=== PATIENT | female | born 2000 | race African-American/Black ===

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

== ENCOUNTER 2021-04-10 22:06 | Emergency (ER) | payer OTHER | END 2021-04-10 23:11 | disposition left against medical advice (07) | LOC: ERS 22:06 | DX: Z53.21 Procedure and treatment not carried out due to patient leaving prior to being seen by health care provider (principal) ==

== ENCOUNTER 2021-05-03 16:15 | Emergency (ER) | payer OTHER ==
[2021-05-03] MEDS ORDERED: HYDROcodone/Acetaminophen 5/325 mg Tablet ONE (16:50)
== END 2021-05-03 19:10 | disposition home or self-care (01) ==
LOC: ERS 16:15
DX: M25.561 Pain in right knee (principal)

== ENCOUNTER 2021-07-08 21:56 | Emergency (ER) | payer OTHER ==
[2021-07-08] MEDS ORDERED: Pantoprazole 40 MG VIAL ONE (23:00)
[2021-07-08] MEDS ORDERED: Ondansetron PF 4 MG/2 ML Vial ONE (23:00)
[2021-07-08 23:31] LABS: #Eosinphils 0.1 thou/uL (0.0-0.7); #Lymphocytes 2.1 thou/uL (1.20-3.40); #Monocytes 0.4 thou/uL (0.11-0.59); #Neutrophils 2.7 thou/uL (1.40-6.50); %Basophils 0.7 % (0.0-1.0); %Eosinophils 2.6 % (0.0-10.0); %Lymphocytes 38.8 % (28.0-48.0); %Monocytes 7.6 % (0.0-4.0); %Neutrophils 50.3 % (31.0-61.0); Hemoglobin 12.2 g/dL (12.0-16.0); Mean Corpuscular HGB CONC 34.2 g/dL (32.0-36.0); Mean Corpuscular Hemoglobin 28.7 pg (25.0-35.0); Mean Platelet Volume 11.8 fL (7.4-10.4); Platelet Count 116 thou/uL (130-400); RBC Distribution Width 12.7 % (11.5-14.5); Red Blood Cell (RBC) Count 4.24 mill/uL (4.00-5.20); White Blood Cell (WBC) Count 5.5 thou/uL (4.8-10.8)
[2021-07-08 23:44] LABS: ALT (SGPT) 12 U/L (8-55); AST (SGOT) 14 U/L (5-34); Albumin 4.1 g/dL (3.5-5.0); Alkaline Phosphatase 64 U/L (40-100); Anion Gap 12 mmol/L (10-20); BUN (Urea Nitrogen) 16 mg/dL (7.0-18.7); Bilirubin, Total 0.2 mg/dL (0.2-1.2); Calc. Creatinine Clearance 0 mL/min (70-130); Calcium 9.4 mg/dL (7.8-10.44); Carbon Dioxide 22 mmol/L (22-29); Chloride 108 mmol/L (98-107); Globulin 3.6 g/dL (2.4-3.5); Glucose 98 mg/dL (70-105); Lipase 34 U/L (8-78); Potassium 4.1 mmol/L (3.5-5.1); Protein, Total 7.7 g/dL (6.0-8.3); Sodium 138 mmol/L (136-145)
== END 2021-07-09 00:08 | disposition home or self-care (01) ==
LOC: ERS 21:56
DX: K92.0 Hematemesis (principal); J45.909 Unspecified asthma, uncomplicated
CPT/HCPCS: 36415; 80053; 83690; 85025; 96374; 96375; C9113; J2405

== ENCOUNTER 2021-07-10 19:59 | Emergency (ER) | payer OTHER ==
[2021-07-10 20:43] LABS: #Basophils 0.1 thou/uL (0.0-0.2); #Eosinphils 0.1 thou/uL (0.0-0.7); #Monocytes 0.3 thou/uL (0.11-0.59); #Neutrophils 2.3 thou/uL (1.40-6.50); %Basophils 1.5 % (0.0-1.0); %Neutrophils 47.5 % (31.0-61.0); Hemoglobin 12.8 g/dL (12.0-16.0); Mean Corpuscular HGB CONC 33.3 g/dL (32.0-36.0); Mean Corpuscular Hemoglobin 28.2 pg (25.0-35.0); Mean Corpuscular Volume 84.7 fL (78.0-98.0); Mean Platelet Volume 11.4 fL (7.4-10.4); Platelet Count 129 thou/uL (130-400); RBC Distribution Width 12.7 % (11.5-14.5); Red Blood Cell (RBC) Count 4.54 mill/uL (4.00-5.20); White Blood Cell (WBC) Count 4.7 thou/uL (4.8-10.8)
[2021-07-10 20:59] LABS: ALT (SGPT) 13 U/L (8-55); AST (SGOT) 14 U/L (5-34); Albumin 4.3 g/dL (3.5-5.0); Alkaline Phosphatase 65 U/L (40-100); Anion Gap 12 mmol/L (10-20); BUN (Urea Nitrogen) 16 mg/dL (7.0-18.7); Bilirubin, Total 0.2 mg/dL (0.2-1.2); Calc. Creatinine Clearance 0 mL/min (70-130); Calcium 9.5 mg/dL (7.8-10.44); Carbon Dioxide 20 mmol/L (22-29); Chloride 108 mmol/L (98-107); Globulin 4.1 g/dL (2.4-3.5); Glucose 87 mg/dL (70-105); Potassium 4.1 mmol/L (3.5-5.1); Protein, Total 8.4 g/dL (6.0-8.3); Sodium 136 mmol/L (136-145)
[2021-07-10 21:05] LABS: BHCG - Serum Negative (NEGATIVE); Pregs Control Background? CLEAR/WHITE (CLR/WHITE); Pregs Control Bar Appear? YES (CONTROL BAR)
[2021-07-10 21:58] LABS: Bilirubin Negative (Negative); Blood, Urine Negative (Negative); Clarity Clear (Clear); Glucose, Urine (Dipstick) Normal (Negative); Ketone, Urine Negative (Negative); Leukocyte Negative Leu/uL (Negative); Nitrite Negative (Negative); Protein, Urine (Dipstick) Negative (Neg-Trace); Specific Gravity, Urine 1.033 (1.002-1.036); pH, Urine 6.5 (5.0-9.0)
[2021-07-10] MEDS ORDERED: Ondansetron ODT 4 MG TAB ONE (22:01)
[2021-07-10] MEDS ORDERED: Lidocaine Viscous Sol 2% 15 ml UD Cup ONE (22:01)
[2021-07-10] MEDS ORDERED: Mag-Al 1200 mg/1200 mg/30 ML UDCUP ONE (22:01)
== END 2021-07-10 23:00 | disposition home or self-care (01) ==
LOC: ERS 19:59
DX: K92.0 Hematemesis (principal); R10.13 Epigastric pain
CPT/HCPCS: 36415; 80053; 81003; 83690; 84703; 85025; 99284; Q0162

== ENCOUNTER 2021-12-28 15:17 | Emergency (ER) | payer OTHER, SELFPAY ==
[2021-12-28] MEDS ORDERED: Dexamethasone 10 MG/ML VIAL ONE (15:58)
[2021-12-28] MEDS ORDERED: diphenhydrAMINE 50 MG/ML VIAL ONE (15:59)
== END 2021-12-28 17:16 | disposition home or self-care (01) ==
LOC: ERS 15:17
DX: T78.49XA Other allergy, initial encounter (principal); J45.909 Unspecified asthma, uncomplicated
CPT/HCPCS: 96372; 99284; J1100; J1200

== ENCOUNTER 2022-01-05 03:08 | Emergency (ER) | payer OTHER ==
[2022-01-05] MEDS ORDERED: Acetaminophen 500 MG TAB ONE (05:32)
== END 2022-01-05 06:00 | disposition home or self-care (01) ==
LOC: ERS 03:08
DX: S70.01XA Contusion of right hip, initial encounter (principal); V49.50XA Passenger injured in collision with unspecified motor vehicles in traffic accident, initial encounter; J45.909 Unspecified asthma, uncomplicated; F17.210 Nicotine dependence, cigarettes, uncomplicated; Z79.899 Other long term (current) drug therapy
CPT/HCPCS: 72170

== ENCOUNTER 2022-01-22 17:38 | Emergency (ER) | payer OTHER ==
[2022-01-22 18:30] LABS: #Eosinphils 0.1 thou/uL (0.0-0.7); #Lymphocytes 1.4 thou/uL (1.20-3.40); #Monocytes 0.4 thou/uL (0.11-0.59); #Neutrophils 2.2 thou/uL (1.40-6.50); %Basophils 0.6 % (0.0-1.0); %Eosinophils 2.8 % (0.0-10.0); %Lymphocytes 33.8 % (28.0-48.0); %Monocytes 9.9 % (0.0-4.0); %Neutrophils 52.9 % (31.0-61.0); Hemoglobin 11.5 g/dL (12.0-16.0); Mean Corpuscular HGB CONC 31.6 g/dL (32.0-36.0); Mean Corpuscular Hemoglobin 26.1 pg (25.0-35.0); Mean Corpuscular Volume 82.7 fL (78.0-98.0); Platelet Count 145 thou/uL (130-400); RBC Distribution Width 14.6 % (11.5-14.5); Red Blood Cell (RBC) Count 4.39 mill/uL (4.00-5.20); White Blood Cell (WBC) Count 4.1 thou/uL (4.8-10.8)
[2022-01-22 18:33] LABS: BHCG - Serum Negative (NEGATIVE); Pregs Control Background? CLEAR/WHITE (CLR/WHITE); Pregs Control Bar Appear? YES (CONTROL BAR)
[2022-01-22 18:46] LABS: Large Platelets SLIGHT; MDiff Complete? YES; Platelet Morphology Comment Appears Adequate; Polychromasia SLIGHT = 2-3 cells (100X) (0-2/hpf)
[2022-01-22 18:47] LABS: ALT (SGPT) 16 U/L (8-55); AST (SGOT) 12 U/L (5-34); Alkaline Phosphatase 77 U/L (40-100); Anion Gap 16 mmol/L (10-20); BUN (Urea Nitrogen) 12 mg/dL (7.0-18.7); Bilirubin, Total 0.3 mg/dL (0.2-1.2); Calc. Creatinine Clearance 0 mL/min (70-130); Calcium 8.9 mg/dL (7.8-10.44); Carbon Dioxide 19 mmol/L (22-29); Chloride 106 mmol/L (98-107); Estimated GFR 119; Globulin 3.7 g/dL (2.4-3.5); Glucose 111 mg/dL (70-105); Lipase 18 U/L (8-78); Potassium 3.5 mmol/L (3.5-5.1); Protein, Total 7.7 g/dL (6.0-8.3); Sodium 137 mmol/L (136-145)
[2022-01-22] MEDS ORDERED: Ondansetron ODT 4 MG TAB ONE (19:44)
== END 2022-01-22 20:02 | disposition home or self-care (01) ==
LOC: ERS 17:38
DX: R11.2 Nausea with vomiting, unspecified (principal); F17.210 Nicotine dependence, cigarettes, uncomplicated
CPT/HCPCS: 36415; 36416; 80053; 83690; 84703; 85025; 99284; Q0162

== ENCOUNTER 2022-02-05 22:47 | Emergency (ER) | payer OTHER | END 2022-02-05 23:57 | disposition home or self-care (01) | LOC: ERS 22:47 | DX: E16.2 Hypoglycemia, unspecified (principal); F17.210 Nicotine dependence, cigarettes, uncomplicated; J45.909 Unspecified asthma, uncomplicated; Z79.899 Other long term (current) drug therapy | CPT/HCPCS: 36416; 93005 ==

== ENCOUNTER 2022-04-19 00:15 | Emergency (ER) | payer OTHER ==
[2022-04-19 01:14] LABS: ALT (SGPT) 13 U/L (8-55); AST (SGOT) 16 U/L (5-34); Albumin 4.2 g/dL (3.5-5.0); Alkaline Phosphatase 66 U/L (40-110); Anion Gap 15 mmol/L (10-20); BUN (Urea Nitrogen) 13 mg/dL (7.0-18.7); Bilirubin, Total 0.3 mg/dL (0.2-1.2); Calc. Creatinine Clearance 0 mL/min (70-130); Calcium 9.1 mg/dL (7.8-10.44); Carbon Dioxide 19 mmol/L (22-29); Chloride 109 mmol/L (98-107); Estimated GFR 109; Globulin 3.8 g/dL (2.4-3.5); Glucose 94 mg/dL (70-105); Sodium 139 mmol/L (136-145)
[2022-04-19 01:22] LABS: #Basophils 0.1 thou/uL (0.0-0.2); #Eosinphils 0.4 thou/uL (0.0-0.7); #Lymphocytes 2.3 thou/uL (1.20-3.40); #Monocytes 0.4 thou/uL (0.11-0.59); #Neutrophils 2.8 thou/uL (1.40-6.50); %Basophils 0.9 % (0.0-1.0); %Eosinophils 6.3 % (0.0-10.0); %Lymphocytes 38.9 % (21.0-51.0); %Monocytes 7.1 % (0.0-10.0); %Neutrophils 46.9 % (42.0-75.0); Hemoglobin 11.3 g/dL (12.0-16.0); Mean Corpuscular HGB CONC 32.9 g/dL (32.0-36.0); Mean Corpuscular Hemoglobin 26.8 pg (27.0-31.0); Mean Corpuscular Volume 81.4 fL (78.0-98.0); Mean Platelet Volume 11.7 fL (7.4-10.4); Platelet Count 160 thou/uL (130-400); RBC Distribution Width 14.4 % (11.5-14.5); Red Blood Cell (RBC) Count 4.22 mill/uL (4.20-5.40)
[2022-04-19] MEDS ORDERED: Famotidine 20 MG TAB ONE (02:37)
[2022-04-19] MEDS ORDERED: diphenhydrAMINE 25 MG CAP ONE (02:37)
[2022-04-19] MEDS ORDERED: predniSONE 20 MG TAB ONE (02:37)
== END 2022-04-19 02:50 | disposition home or self-care (01) ==
LOC: ERS 00:15
DX: T78.1XXA Other adverse food reactions, not elsewhere classified, initial encounter (principal); F17.210 Nicotine dependence, cigarettes, uncomplicated
CPT/HCPCS: 36415; 71045; 80053; 84484; 85025; 93005; J7512

== ENCOUNTER 2022-04-23 21:20 | Emergency (ER) | payer OTHER | END 2022-04-23 21:38 | LOC: ERS 21:20 | DX: Z53.21 Procedure and treatment not carried out due to patient leaving prior to being seen by health care provider (principal) ==

== ENCOUNTER 2022-05-13 16:10 | Emergency (ER) | payer OTHER | END 2022-05-13 19:35 | disposition home or self-care (01) | LOC: ERS 16:10 | DX: O03.9 Complete or unspecified spontaneous abortion without complication (principal); J45.909 Unspecified asthma, uncomplicated; Z87.891 Personal history of nicotine dependence | CPT/HCPCS: 36415; 76856; 84702; 86900; 86901 ==

== ENCOUNTER 2022-05-16 19:44 | Inpatient (IN) | payer OTHER ==
[2022-05-16] MEDS ORDERED: Acetaminophen 500 MG TAB ONE (20:10)
[2022-05-16] MEDS ORDERED: Ibuprofen 800 MG TAB ONE (20:16)
[2022-05-16 20:21] LABS: #Monocytes 0.4 thou/uL (0.11-0.59); #Neutrophils 3.1 thou/uL (1.40-6.50); %Basophils 1.1 % (0.0-1.0); %Eosinophils 0.2 % (0.0-10.0); %Lymphocytes 21.9 % (21.0-51.0); %Monocytes 9.2 % (0.0-10.0); %Neutrophils 67.6 % (42.0-75.0); Hemoglobin 12.3 g/dL (12.0-16.0); Mean Corpuscular HGB CONC 32.1 g/dL (32.0-36.0); Mean Corpuscular Hemoglobin 26.1 pg (27.0-31.0); Mean Corpuscular Volume 81.4 fl (78.0-98.0); RBC Distribution Width 14.8 % (11.5-14.5); White Blood Cell (WBC) Count 4.6 thou/uL (4.8-10.8)
[2022-05-16 20:29] LABS: ALT (SGPT) 25 U/L (8-55); AST (SGOT) 25 U/L (5-34); Albumin 4.2 g/dL (3.5-5.0); Alkaline Phosphatase 67 U/L (40-110); Anion Gap 16 mmol/L (10-20); BUN (Urea Nitrogen) 13 mg/dL (7.0-18.7); Bilirubin, Total 0.4 mg/dL (0.2-1.2); Calc. Creatinine Clearance 0 mL/min (70-130); Calcium 8.8 mg/dL (7.8-10.44); Carbon Dioxide 19 mmol/L (22-29); Chloride 105 mmol/L (98-107); Estimated GFR 81; Globulin 3.7 g/dL (2.4-3.5); Glucose 114 mg/dL (70-105); Potassium 3.3 mmol/L (3.5-5.1); Protein, Total 7.9 g/dL (6.0-8.3); Sodium 137 mmol/L (136-145)
[2022-05-16 20:36] LABS: Large Platelets SLIGHT; MDiff Complete? YES; Mean Platelet Volume 12.6 fL (7.4-10.4); Platelet Count 115 thou/uL (130-400); Platelet Morphology Comment Appears Decreased; Polychromasia SLIGHT = 2-3 cells (100X) (0-2/hpf)
[2022-05-16 20:57] LABS: Bacteria/HPF 3+ HPF (None Seen); Bilirubin Negative (Negative); Blood, Urine Negative (Negative); Clarity Turbid (Clear); Glucose, Urine (Dipstick) Normal (Negative); Ketone, Urine 80 mg/dL (Negative); Leukocyte 25 Leu/uL (Negative); Nitrite 2+ (Negative); Protein, Urine (Dipstick) 100 mg/dL (Neg-Trace); RBC/HPF 0-3 HPF (0-3); Specific Gravity, Urine 1.037 (1.002-1.036); Squamous Epithelial 0-3 HPF (0-3)
[2022-05-16] MEDS ORDERED: Cefepime 2 GM VIAL ONE (21:55)
[2022-05-16 22:15] LABS: SARS-CoV-2 NAA Rapid Test Not Detected (NotDetected)
[2022-05-16] MEDS ORDERED: Potassium Chloride 20 MEQ TAB PO SCH (22:30)
[2022-05-16] MEDS ORDERED: Albuterol 200 PUFF (6.7GM INHALER) INH PRN (23:19)
[2022-05-16] MEDS ORDERED: Ibuprofen 800 MG TAB PO PRN (23:19)
[2022-05-16] MEDS ORDERED: Albuterol Sulfate 2.5 mg/3 ml Neb NEB PRN (23:19)
[2022-05-16 23:21] VITALS: BMI 46.3
[2022-05-17] MEDS: Lactated Ringer's 1,000 ML IV SCH ×3 (00:31→15:15)
[2022-05-17] MEDS: Acetaminophen 325 MG TAB PO PRN ×2 (01:39→11:20)
[2022-05-17] MEDS ORDERED: Mometasone 100 MCG/PUFF (1 INHALER) INH SCH (06:30)
[2022-05-17 08:08] LABS: ALT (SGPT) 22 U/L (8-55); AST (SGOT) 17 U/L (5-34); Albumin 3.5 g/dL (3.5-5.0); Alkaline Phosphatase 53 U/L (40-110); Anion Gap 11 mmol/L (10-20); BUN (Urea Nitrogen) 8 mg/dL (7.0-18.7); Bilirubin, Total 0.3 mg/dL (0.2-1.2); Calc. Creatinine Clearance 257 mL/min (70-130); Calcium 8.3 mg/dL (7.8-10.44); Carbon Dioxide 19 mmol/L (22-29); Chloride 112 mmol/L (98-107); Estimated GFR 127; Globulin 3.2 g/dL (2.4-3.5); Glucose 90 mg/dL (70-105); Protein, Total 6.7 g/dL (6.0-8.3); Sodium 138 mmol/L (136-145)
[2022-05-17 08:35] LABS: Hemoglobin 10.6 g/dL (12.0-16.0); Mean Corpuscular HGB CONC 31.4 g/dL (32.0-36.0); Mean Corpuscular Hemoglobin 26.1 pg (27.0-31.0); Mean Corpuscular Volume 83.1 fl (78.0-98.0); Platelet Count 103 thou/uL (130-400); RBC Distribution Width 14.9 % (11.5-14.5); Red Blood Cell (RBC) Count 4.08 mill/uL (4.20-5.40); White Blood Cell (WBC) Count 3.3 thou/uL (4.8-10.8)
[2022-05-17] MEDS ORDERED: FLU VACC QS2022-23(6MOS UP)/PF 60 MCG/0.5 ML SYRINGE IM ONE (09:00)
[2022-05-17] MEDS ORDERED: Famotidine 20 MG TAB PO SCH (09:00)
[2022-05-17] MEDS ORDERED: Prenatal Vitamin 1 TAB PO SCH (09:00)
[2022-05-17] MEDS ORDERED: Enoxaparin Sodium 40 MG/0.4 ML SYRINGE SC SCH (09:00)
[2022-05-17] MEDS: Ferrous Sulfate 325 MG TAB PO SCH ×2 (09:21→15:18)
[2022-05-17 10:34] LABS: Band 6 % (5-11); Eosinophils 2 % (0-10); Lymphocytes 34 % (21-51); MDiff Complete? YES; Monocytes 15 % (0-10); Neutrophil 43 % (42-75); Platelet Morphology Comment Appears Decreased; Polychromasia SLIGHT = 2-3 cells (100X) (0-2/hpf)
[2022-05-17] MEDS ORDERED: cefTRIAXone\\ROCEPHIN 1 GM in Sodium Chloride 0.9% 100 ML IVPB SCH (15:15)
[2022-05-17 17:20] VITALS: BP 117/70; TEMP 98.3
== END 2022-05-17 18:11 | disposition home or self-care (01) | DRG 872 ==
LOC: ERS 19:44 → T4-B 21:55
PROVIDERS: ADMIT Student in an Organized Health Care Education/Training Program; ATTEND Emergency Medicine
DX: A41.89 Other specified sepsis (principal); N39.0 Urinary tract infection, site not specified; J10.1 Influenza due to other identified influenza virus with other respiratory manifestations; Z23 Encounter for immunization; Z20.822 Contact with and (suspected) exposure to COVID-19; J45.909 Unspecified asthma, uncomplicated; K21.9 Gastro-esophageal reflux disease without esophagitis; D69.6 Thrombocytopenia, unspecified; E87.6 Hypokalemia; Z88.6 Allergy status to analgesic agent; Z88.4 Allergy status to anesthetic agent; Z91.013 Allergy to seafood; Z79.899 Other long term (current) drug therapy; Z90.49 Acquired absence of other specified parts of digestive tract
CPT/HCPCS: 36415; 51701; 71045; 80053; 81003; 81015; 83605; 84145; 84484; 84702; 85025; 87040; 87077; 87086; 87149; 87186; 90471; 90686; 93005; 96361; 96365; G0008; J0692; J0696; J3490; J7120

== ENCOUNTER 2022-07-02 21:55 | Emergency (ER) | payer OTHER ==
[2022-07-02] MEDS ORDERED: Famotidine/PF 20 mg/2ml Vial ONE (22:21)
[2022-07-02] MEDS ORDERED: Magnesium 2 GM/50 ML BAG (IN WATER) ONE (22:21)
[2022-07-02] MEDS ORDERED: methylPREDNISolone Sod Succ/PF 125 MG/2 ML VIAL ONE (22:21)
== END 2022-07-02 23:41 | disposition home or self-care (01) ==
LOC: ERS 21:55
DX: J45.901 Unspecified asthma with (acute) exacerbation (principal); Z87.891 Personal history of nicotine dependence
CPT/HCPCS: 96374; 96375; J2930; J3475; J7620; S0028

== ENCOUNTER 2022-10-09 01:51 | Emergency (ER) | payer OTHER ==
[2022-10-09 04:06] LABS: Bilirubin Negative (Negative); Blood, Urine Negative (Negative); Clarity Turbid (Clear); Glucose, Urine (Dipstick) Normal (Negative); Ketone, Urine Trace mg/dL (Negative); Leukocyte 500 Leu/uL (Negative); Nitrite 2+ (Negative); Protein, Urine (Dipstick) 50 mg/dL (Neg-Trace)
[2022-10-09 04:08] LABS: Hemoglobin 10.7 g/dL (12.0-16.0); Mean Corpuscular HGB CONC 31.6 g/dL (32.0-36.0); Mean Corpuscular Hemoglobin 26.1 pg (27.0-31.0); Mean Corpuscular Volume 82.5 fl (78.0-98.0); Platelet Count 161 10x3/uL (130-400); RBC Distribution Width 14.8 % (11.5-14.5); Red Blood Cell (RBC) Count 4.12 mill/uL (4.20-5.40); White Blood Cell (WBC) Count 5.9 10x3/uL (4.8-10.8)
[2022-10-09 04:19] LABS: BHCG - Serum Negative (NEGATIVE); Pregs Control Background? CLEAR/WHITE (CLR/WHITE); Pregs Control Bar Appear? YES (CONTROL BAR)
[2022-10-09 04:22] LABS: Bacteria/HPF 4+ HPF (None Seen); RBC/HPF 0-3 HPF (0-3); Squamous Epithelial 0-3 HPF (0-3); WBC/HPF 0-3 HPF (0-3)
[2022-10-09 04:29] LABS: ALT (SGPT) 11 U/L (8-55); AST (SGOT) 13 U/L (5-34); Alkaline Phosphatase 63 U/L (40-110); Anion Gap 11 mmol/L (10-20); BUN (Urea Nitrogen) 14 mg/dL (7.0-18.7); Bilirubin, Total 0.2 mg/dL (0.2-1.2); Calc. Creatinine Clearance 0 mL/min (70-130); Carbon Dioxide 21 mmol/L (22-29); Chloride 106 mmol/L (98-107); Estimated GFR 118; Globulin 3.9 g/dL (2.4-3.5); Glucose 101 mg/dL (70-105); Lipase 29 U/L (8-78); Potassium 4.1 mmol/L (3.5-5.1); Protein, Total 7.9 g/dL (6.0-8.3); Sodium 134 mmol/L (136-145)
[2022-10-09 04:32] LABS: Anisocytosis SLIGHT = 6-15 cells (100X) (0-5/hpf); Hypochromia SLIGHT = 6-15 cells (100X) (0-5/hpf); Large Platelets SLIGHT; MDiff Complete? YES; Mean Platelet Volume 12.1 fL (7.4-10.4); Platelet Morphology Comment Appears Adequate; Polychromasia SLIGHT = 2-3 cells (100X) (0-2/hpf)
== END 2022-10-09 06:55 | disposition home or self-care (01) ==
LOC: ERS 01:51
DX: N39.0 Urinary tract infection, site not specified (principal); Z87.891 Personal history of nicotine dependence
CPT/HCPCS: 36415; 80053; 81003; 81015; 83690; 84703; 85025; 99284